=== PATIENT | female | born 1955 | race Caucasian/White ===

== ENCOUNTER 2018-09-23 09:00 | Day surgery (SDC) | payer OTHER ==
[~2018-09-23] VITALS: Ht 154.9 cm; Wt 53.2 kg
[2018-09-23] MEDS ORDERED: SODIUM CHLORIDE 0.9% 1,000 ML IV ONE (09:30)
[2018-09-23 09:35] VITALS: BP 106/63
[2018-09-23] MEDS ORDERED: VITA1TAB PO (10:00)
[2018-09-23] MEDS ORDERED: CHOL400C11 PO (10:00)
[2018-09-23] MEDS ORDERED: MULT-257 PO (10:00)
[2018-09-23] MEDS ORDERED: ALEN70TA3 PO (10:00)
[2018-09-23] MEDS ORDERED: CALC-534 PO (10:00)
[2018-09-23] MEDS ORDERED: VITAMIN B12 SC (10:00)
[2018-09-23] MEDS ORDERED: SODIUM CHLORIDE 0.9% 1,000 ML IV SCH (10:13)
[2018-09-23] MEDS ORDERED: CEFAZOLIN PMX 1GM/50ML 50 ML IVPB ONE (10:30)
[2018-09-23] MEDS ORDERED: PROPOFOL 10 MG/ML, 20ML ONE (11:28)
== END 2018-09-23 13:19 | disposition home or self-care (01) ==
LOC: CACL 09:00
PROVIDERS: ATTEND Internal Medicine Cardiovascular Disease
DX: I37.1 Nonrheumatic pulmonary valve insufficiency (principal); I34.1 Nonrheumatic mitral (valve) prolapse; I25.10 Atherosclerotic heart disease of native coronary artery without angina pectoris; Z79.899 Other long term (current) drug therapy; Z82.49 Family history of ischemic heart disease and other diseases of the circulatory system
CPT/HCPCS: 93312; 93325; J2704

== ENCOUNTER 2018-10-27 12:33 | Day surgery (SDC) | payer OTHER ==
[~2018-10-27] VITALS: Ht 152.4 cm; Wt 53.7 kg
[~2018-10-27 12:33] MED LIST: ALEN70TA3 PO; CALC-534 PO; CHOL400C11 PO; MULT-257 PO; VITA1TAB PO; VITAMIN B12 SC
[2018-10-27] MEDS ORDERED: SODIUM CHLORIDE 0.9% 1,000 ML IV SCH ×2 (13:03→16:00)
[2018-10-27] MEDS ORDERED: PLEASE ENTER HEIGHT AND WEIGHT MC SCH (13:30)
[2018-10-27] MEDS ORDERED: FLUT9.9S INH (13:38)
[2018-10-27] MEDS ORDERED: UBID100C41 PO (13:38)
[2018-10-27] MEDS ORDERED: ALEN70TA3 PO (13:38)
[2018-10-27 13:40] VITALS: BP 124/61
[2018-10-27] MEDS ORDERED: FENTANYL PF 100 MCG/2ML ONE (14:33)
[2018-10-27] MEDS ORDERED: MIDAZOLAM 1 MG/ML, 5ML ONE (14:33)
[2018-10-27] MEDS ORDERED: TICAGRELOR 90 MG TABLET ONE (14:34)
[2018-10-27] MEDS ORDERED: LIDOCAINE-MPF 1%, 5ML ONE (14:34)
[2018-10-27] MEDS ORDERED: VERAPAMIL 2.5 MG/ML, 2ML ONE (14:34)
[2018-10-27] MEDS ORDERED: HEPARIN 1,000 UNITS/ML, 10ML ONE (14:34)
[2018-10-27] MEDS ORDERED: BIVALIRUDIN 250 MG ONE (14:34)
[2018-10-27] MEDS ORDERED: ACETAMINOPHEN 325 MG TABLET PO ONE (17:00)
== END 2018-10-27 16:51 | disposition home or self-care (01) ==
LOC: CACL 12:33
PROVIDERS: ATTEND Internal Medicine Cardiovascular Disease
DX: I34.0 Nonrheumatic mitral (valve) insufficiency (principal)
CPT/HCPCS: 93458; 99156; C1769; C1894; J1644; J2250; J3010; Q9967; J0583

== ENCOUNTER 2018-11-11 10:30 | Inpatient (IN) | payer OTHER ==
[~2018-11-11] VITALS: Ht 152.4 cm; Wt 67.2 kg
[2018-11-22 06:59] VITALS: BP 120/79
== END 2018-11-22 12:08 | disposition home health service (06) | DRG 219 ==
LOC: ORIP 11-15 10:41 → UNDOADMIN 11-15 10:41 → 5SO 11-16 08:46 → CSU 11-16 12:40 → 5SO 11-19 14:45 → DCLOUNGE 11-22 11:32
PROVIDERS: ADMIT Thoracic Surgery (Cardiothoracic Vascular Surgery); ATTEND Thoracic Surgery (Cardiothoracic Vascular Surgery)
PROC: 02UG0JZ Supplement Mitral Valve with Synthetic Substitute, Open Approach (ICD-10-PCS; principal; 2018-11-16)
PROC: B246ZZ4 Ultrasonography of Right and Left Heart, Transesophageal (ICD-10-PCS; 2018-11-16)
PROC: 03HY32Z Insertion of Monitoring Device into Upper Artery, Percutaneous Approach (ICD-10-PCS; 2018-11-16)
PROC: 5A1221Z Performance of Cardiac Output, Continuous (ICD-10-PCS; 2018-11-16)
DX: I34.0 Nonrheumatic mitral (valve) insufficiency (principal); I50.33 Acute on chronic diastolic (congestive) heart failure; I48.91 Unspecified atrial fibrillation; I95.9 Hypotension, unspecified; I34.1 Nonrheumatic mitral (valve) prolapse; D64.9 Anemia, unspecified; Z88.8 Allergy status to other drugs, medicaments and biological substances; R06.03 Acute respiratory distress
CPT/HCPCS: 36415; 36600; 82805; J3490; S0017; 71045; 71046; 80048; 80053; 81003; 82040; 82330; 82533; 82800; 82803; 82810; 82947; 82962; 83036; 83735; 84132; 84295; 85014; 85018; 85025; 85049; 85347; 85610; 85730; 86850; 86900; 86923; 87081; 88305; 93005; 93312; 93321; 93325; 93880; 94002; 94003; G0378; J0697; J1644; J1815; J1885; J2250; J2405; J2704; J2720; J3010; J3370; J3475; J3480; P9045; P9047; C1751; C1760; C1762; J0171; J0282; J0780; J1940; J2270; J2370; J7030; J7040; J7050; J7060; J7120